=== PATIENT | male | born 1980 | race African-American/Black ===

== ENCOUNTER 2025-10-03 16:51 | Inpatient (IN) | payer BC, MEDICARE ==
[~2025-10-03] VITALS: Ht 188 cm; Wt 104.5 kg
[2025-10-03 17:37] LABS: BASO # 0.0 10^3/uL (0.0-0.2); BASO % 0.5 % (0.0-1.0); EOS # 0.2 10^3/uL (0.0-0.5); EOS % 2.2 % (0.0-3.0); LYMPH # 1.3 10^3/uL (1.5-5.0); LYMPH % 17.3 % (24.0-44.0); MONO # 0.8 10^3/uL (0.0-0.8); MONO % 10.0 % (2.0-8.0); NEUTROPHILS # 5.3 10^3/uL (1.5-8.5); NEUTROPHILS % 69.7 % (36.0-66.0); PLATELET COUNT, AUTOMATED 256 10^3/uL (150-450)
[2025-10-03 18:07] LABS: ALT/SGPT 26.0 U/L (7.0-40); AST/SGOT 25.0 U/L (<34); CALCIUM LEVEL 9.8 MG/DL (8.5-10.1); CARBON DIOXIDE LEVEL 30.0 MMOL/L (20-31); CHLORIDE LEVEL 92.0 MMOL/L (98-107); CREATININE FOR GFR 10.66 MG/DL (0.70-1.30); GLOMERULAR FILTRATION RATE 5.5 (>60); POTASSIUM SERUM 6.0 MMOL/L (3.5-5.1); SODIUM LEVEL 138.0 MMOL/L (136-145)
[2025-10-03] MEDS: NS (Normal Saline) 0.9% 1,000 ML IV ONE (18:29)
[2025-10-03] MEDS: ONDANSETRON 4MG/2ML VIAL IV ONE (18:30)
[2025-10-03 18:52] LABS: CK-MB VALUE MASS 7.1 NG/ML (<3.6)
[2025-10-03 18:55] LABS: CPK CREATINE PHOSPHOKINASE 280.0 U/L (46-171); MB/CK RELATIVE INDEX 2.53 (< OR =4)
[2025-10-03] MEDS ORDERED: HYDR-4517 PO (19:09)
[2025-10-03] MEDS ORDERED: NIFE90TA46 PO (19:09)
[2025-10-03] MEDS ORDERED: GABA-1171 PO (19:09)
[2025-10-03] MEDS ORDERED: ROSU40TA81 PO (19:09)
[2025-10-03] MEDS ORDERED: HUMU70IN INJ (19:09)
[2025-10-03] MEDS ORDERED: CONS10SO3 PO (19:09)
[2025-10-03] MEDS ORDERED: CLON-412 PO (19:09)
[2025-10-03] MEDS ORDERED: TRAZ1TAB14 PO (19:09)
[2025-10-03] MEDS ORDERED: LABE20TAB PO (19:09)
[2025-10-03] MEDS ORDERED: DIALTAB PO (19:09)
[2025-10-03] MEDS ORDERED: CLON1TAB8 PO (19:09)
[2025-10-03] MEDS ORDERED: CLOP75TA2 PO (19:09)
[2025-10-03] MEDS ORDERED: INSU100V19 INJ (19:09)
[2025-10-03] MEDS ORDERED: LINZ290C PO (19:09)
[2025-10-03] MEDS ORDERED: HOME MED LIST COMPLETE! XX SCH (19:10)
[2025-10-03 19:47] LABS: MAGNESIUM LEVEL 2.3 MG/DL (1.8-2.4)
[2025-10-03] MEDS: ACETAMINOPHEN *IV* 1,000 MG in IV 1 EA IV ONE (21:05)
[2025-10-03] MEDS ORDERED: DEXTROSE 50% 50 ML SYRINGE IV PRN (22:50)
[2025-10-03] MEDS ORDERED: VANCOMYCIN HCL 1,000 MG, VIAL MATE ADAPTER 1 EACH in NS 250 ML IP ONE (22:50)
[2025-10-03] MEDS ORDERED: GLUCAGON INJ 1 MG VIAL SC PRN (22:50)
[2025-10-03] MEDS ORDERED: GLUCOSE 4 GM CHEW PO PRN (22:50)
[2025-10-03] MEDS: HYDROMORPHONE HCL 0.5 MG/0.5 ML SYRINGE IV PRN (23:24)
[2025-10-03] MEDS: VANCOMYCIN HCL 2,000 MG, VIAL MATE ADAPTER 1 EACH in NS 500 ML IV ONE (23:50)
[2025-10-03] MEDS: METOPROLOL 5 MG/5 ML VIAL IV SCH (23:50)
[2025-10-04] VITALS (7 sets, daily range): BP systolic 166–200; BP diastolic 79–87; TEMP 96.7–98.2; O2SAT 97–100
[2025-10-04] MEDS: cloNIDine HCL 0.2 MG/24 HR PATCH TOP SCH (00:14)
[2025-10-04 00:27] LABS: CALCIUM LEVEL 8.6 MG/DL (8.5-10.1); CARBON DIOXIDE LEVEL 29.0 MMOL/L (20-31); CHLORIDE LEVEL 93.0 MMOL/L (98-107); CREATININE FOR GFR 11.07 MG/DL (0.70-1.30); GLOMERULAR FILTRATION RATE 5.3 (>60); POTASSIUM SERUM 6.0 MMOL/L (3.5-5.1); SODIUM LEVEL 136.0 MMOL/L (136-145)
[2025-10-04] MEDS: PIPERACILLIN/TAZOBACTAM SOD 2.25 GM in DEXTROSE 5% (D5W) ADV/MINI-BAG 50 ML IV SCH (02:54)
[2025-10-04] MEDS ORDERED: LIDOCAINE 1% SDV 5 ML VIAL SC PRN (06:50)
[2025-10-04] MEDS ORDERED: HEPARIN 1,000 UNITS/ML 10 ML VIAL (FOR RADIOLOGY & DIALYSIS ONLY) IV PRN (06:50)
[2025-10-04] MEDS ORDERED: SODIUM CHLORIDE 0.9% 1000 ML IV PRN (06:50)
[2025-10-04 07:37] LABS: PLATELET COUNT, AUTOMATED 222 10^3/uL (150-450)
[2025-10-04 07:44] LABS: HEPATITIS B SURFACE ANTIBODY POSITIVE (POSITIVE)
[2025-10-04 08:17] LABS: HEPATITIS C VIRUS ABY INDEX < 0.02 INDEX (<0.8)
[2025-10-04 09:05] LABS: ALT/SGPT 23 U/L (7.0-40); AST/SGOT 26 U/L (<34); CALCIUM LEVEL 8.7 MG/DL (8.5-10.1); CARBON DIOXIDE LEVEL 28 MMOL/L (20-31); CHLORIDE LEVEL 96 MMOL/L (98-107); CREATININE FOR GFR 11.57 MG/DL (0.70-1.30); GLOMERULAR FILTRATION RATE 5.0 (>60); MAGNESIUM LEVEL 2.0 MG/DL (1.8-2.4); POTASSIUM SERUM 5.9 MMOL/L (3.5-5.1); SODIUM LEVEL 138 MMOL/L (136-145)
[2025-10-04] MEDS: INSULIN LISPRO (NovoLOG) PER UNIT SC SCH (09:07)
[2025-10-04] MEDS ORDERED: HYDROmorphone HCL 2 MG/ML 1 ML VIAL IV PRN (09:20)
[2025-10-04] MEDS: HEPARIN 1,000 UNITS/ML 10 ML VIAL (FOR RADIOLOGY & DIALYSIS ONLY) XX SCH (10:05)
[2025-10-04] MEDS: ACETAMINOPHEN *IV* 1,000 MG in IV 1 EA IV ONE (10:27)
[2025-10-04 10:49] LABS: C REACTIVE PROTEIN QUANTITATIV 1.14 MG/DL (<1.0)
[2025-10-04] MEDS: HYDROMORPHONE HCL 0.5 MG/0.5 ML SYRINGE IV PRN (14:48)
[2025-10-04] MEDS: clonazePAM 1 MG TAB PO SCH (20:27)
[2025-10-04] MEDS: ROSUVASTATIN 10 MG TAB PO SCH (20:28)
[2025-10-04] MEDS: LABETALOL 200 MG TAB PO SCH (20:28)
[2025-10-04] MEDS: traZODone 50 MG TAB PO SCH (20:28)
[2025-10-04] MEDS: NIFEdipine 30 MG XL TAB PO SCH (20:29)
[2025-10-04] MEDS: HEPARIN SOD 5000 UNITS/ML 1 ML VIAL/SYRINGE SQ SCH (20:29)
[2025-10-04] MEDS: GABAPENTIN 100 MG CAP PO SCH (20:29)
[2025-10-04] MEDS ORDERED: CLOPIDOGREL 75 MG TAB PO SCH (21:00)
[2025-10-05 04:39] VITALS: BP 124/63; TEMP 98.4; O2SAT 98
[2025-10-05 05:50] LABS: BASO # 0.0 10^3/uL (0.0-0.2); BASO % 0.6 % (0.0-1.0); EOS # 0.1 10^3/uL (0.0-0.5); EOS % 2.9 % (0.0-3.0); LYMPH # 0.5 10^3/uL (1.5-5.0); LYMPH % 10.9 % (24.0-44.0); MONO # 0.6 10^3/uL (0.0-0.8); MONO % 12.4 % (2.0-8.0); NEUTROPHILS # 3.5 10^3/uL (1.5-8.5); NEUTROPHILS % 73.0 % (36.0-66.0); PLATELET COUNT, AUTOMATED 197 10^3/uL (150-450)
[2025-10-05 06:05] LABS: C REACTIVE PROTEIN QUANTITATIV 2.92 MG/DL (<1.0)
[2025-10-05 06:13] LABS: ALT/SGPT 40.0 U/L (7.0-40); AST/SGOT 39.0 U/L (<34); CALCIUM LEVEL 8.6 MG/DL (8.5-10.1); CARBON DIOXIDE LEVEL 27.0 MMOL/L (20-31); CHLORIDE LEVEL 98.0 MMOL/L (98-107); CREATININE FOR GFR 8.93 MG/DL (0.70-1.30); GLOMERULAR FILTRATION RATE 6.8 (>60); MAGNESIUM LEVEL 2.0 MG/DL (1.8-2.4); POTASSIUM SERUM 5.6 MMOL/L (3.5-5.1); SODIUM LEVEL 137.0 MMOL/L (136-145)
[2025-10-05 08:00] VITALS: BP 148/72; TEMP 98.3; O2SAT 100
[2025-10-05] MEDS ORDERED: MAGNESIUM CITRATE 300 ML BTL PO ONE (10:00)
[2025-10-05] MEDS ORDERED: HEPARIN 1,000 UNITS/ML 10 ML VIAL (FOR RADIOLOGY & DIALYSIS ONLY) IV PRN (10:05)
[2025-10-05] MEDS ORDERED: LIDOCAINE 1% SDV 5 ML VIAL SC PRN (10:05)
[2025-10-05] MEDS ORDERED: SODIUM CHLORIDE 0.9% 1000 ML IV PRN (10:05)
[2025-10-05] MEDS: MIRALAX *UNIT DOSE* 17 GM PACKET PO SCH (10:23)
[2025-10-05] MEDS: LIDOCAINE/PRILOCAINE CREAM 5 GM TUBE TOP PRN (10:31)
[2025-10-05] MEDS: HEPARIN 1,000 UNITS/ML 10 ML VIAL (FOR RADIOLOGY & DIALYSIS ONLY) XX SCH (12:50)
[2025-10-05] MEDS: LACTULOSE 20 GM/30 ML SYRUP UDC PO SCH (15:06)
[2025-10-05 16:00] VITALS: BP 142/73; TEMP 99; O2SAT 99
[2025-10-05 20:00] VITALS: BP 134/60; TEMP 98.7; O2SAT 97
[2025-10-06] VITALS (7 sets, daily range): BP systolic 112–180; BP diastolic 56–83; TEMP 97.2–98.5; O2SAT 94–100
[2025-10-06 07:42] LABS: BASO # 0.0 10^3/uL (0.0-0.2); BASO % 0.7 % (0.0-1.0); EOS # 0.2 10^3/uL (0.0-0.5); EOS % 4.2 % (0.0-3.0); LYMPH # 0.9 10^3/uL (1.5-5.0); LYMPH % 23.0 % (24.0-44.0); MONO # 0.7 10^3/uL (0.0-0.8); MONO % 16.6 % (2.0-8.0); NEUTROPHILS # 2.2 10^3/uL (1.5-8.5); NEUTROPHILS % 55.3 % (36.0-66.0); PLATELET COUNT, AUTOMATED 204 10^3/uL (150-450)
[2025-10-06 08:31] LABS: CALCIUM LEVEL 8.5 MG/DL (8.5-10.1); CARBON DIOXIDE LEVEL 30.0 MMOL/L (20-31); CHLORIDE LEVEL 96.0 MMOL/L (98-107); CREATININE FOR GFR 8.08 MG/DL (0.70-1.30); GLOMERULAR FILTRATION RATE 7.7 (>60); MAGNESIUM LEVEL 1.9 MG/DL (1.8-2.4); POTASSIUM SERUM 5.2 MMOL/L (3.5-5.1); SODIUM LEVEL 136.0 MMOL/L (136-145)
[2025-10-06] MEDS ORDERED: FLEET ENEMA PR PRN (08:55)
[2025-10-06] MEDS: LACTULOSE 20 GM/30 ML SYRUP UDC PO SCH (10:08)
[2025-10-06] MEDS: FLEET OIL RETENTION ENEMA PR PRN (12:36)
[2025-10-06] MEDS: HYDROMORPHONE HCL 0.5 MG/0.5 ML SYRINGE IV PRN ×2 (17:40→21:37)
[2025-10-06] MEDS: SIMETHICONE 80MG CHEW TAB PO PRN (19:07)
[2025-10-07] VITALS (7 sets, daily range): BP systolic 138–192; BP diastolic 62–92; TEMP 98.5–98.9; O2SAT 93–98
[2025-10-07] MEDS ORDERED: HEPARIN 1,000 UNITS/ML 10 ML VIAL (FOR RADIOLOGY & DIALYSIS ONLY) IV PRN (06:00)
[2025-10-07] MEDS ORDERED: SODIUM CHLORIDE 0.9% 1000 ML IV PRN (06:00)
[2025-10-07] MEDS ORDERED: LIDOCAINE 1% SDV 5 ML VIAL SC PRN (06:00)
[2025-10-07] MEDS: HEPARIN 1,000 UNITS/ML 10 ML VIAL (FOR RADIOLOGY & DIALYSIS ONLY) XX SCH (10:42)
[2025-10-07 11:04] LABS: PLATELET COUNT, AUTOMATED 208 10^3/uL (150-450)
[2025-10-07 11:18] LABS: CALCIUM LEVEL 8.2 MG/DL (8.5-10.1); CARBON DIOXIDE LEVEL 26.0 MMOL/L (20-31); CHLORIDE LEVEL 96.0 MMOL/L (98-107); CREATININE FOR GFR 10.39 MG/DL (0.70-1.30); GLOMERULAR FILTRATION RATE 5.7 (>60); POTASSIUM SERUM 5.2 MMOL/L (3.5-5.1); SODIUM LEVEL 137.0 MMOL/L (136-145)
[2025-10-07] MEDS ORDERED: PILL CUTTER 1 EACH XX PRN (21:50)
[2025-10-07] MEDS: HYDROmorphone 2 MG TAB PO PRN (22:03)
[2025-10-08] VITALS: TEMP 98.6; O2SAT 100
[2025-10-08 05:56] VITALS: BP 156/70; TEMP 98.7; O2SAT 96
[2025-10-08 08:00] VITALS: BP 132/65; TEMP 98.8; O2SAT 97
[2025-10-08 12:43] VITALS: BP 142/71; TEMP 98.3; O2SAT 97
== END 2025-10-08 12:35 | disposition home or self-care (01) | DRG 356 ==
LOC: M ED 16:51 → M ED INP 22:43 → M ICU 10-04 09:09 → M MSPAV 10-06 11:40
PROVIDERS: ADMIT Internal Medicine; ATTEND Internal Medicine
PROC: 5A1D70Z Performance of Urinary Filtration, Intermittent, Less than 6 Hours Per Day (ICD-10-PCS; 2025-10-04)
PROC: 0JBR0ZZ Excision of Left Foot Subcutaneous Tissue and Fascia, Open Approach (ICD-10-PCS; principal; 2025-10-07)
DX: K56.51 Intestinal adhesions [bands], with partial obstruction (principal); N18.6 End stage renal disease; I12.0 Hypertensive chronic kidney disease with stage 5 chronic kidney disease or end stage renal disease; L97.528 Non-pressure chronic ulcer of other part of left foot with other specified severity; E11.22 Type 2 diabetes mellitus with diabetic chronic kidney disease; E11.51 Type 2 diabetes mellitus with diabetic peripheral angiopathy without gangrene; I25.10 Atherosclerotic heart disease of native coronary artery without angina pectoris; K59.09 Other constipation; E87.5 Hyperkalemia; D64.9 Anemia, unspecified; E11.621 Type 2 diabetes mellitus with foot ulcer; G89.29 Other chronic pain; E11.42 Type 2 diabetes mellitus with diabetic polyneuropathy; Z95.820 Peripheral vascular angioplasty status with implants and grafts; Z95.5 Presence of coronary angioplasty implant and graft; Z89.422 Acquired absence of other left toe(s); Z79.4 Long term (current) use of insulin; Z79.02 Long term (current) use of antithrombotics/antiplatelets; Z79.899 Other long term (current) drug therapy; Z88.1 Allergy status to other antibiotic agents; Z88.5 Allergy status to narcotic agent; Z96.652 Presence of left artificial knee joint; Z99.2 Dependence on renal dialysis

== ENCOUNTER 2025-10-09 19:27 | Inpatient (IN) | payer MEDICARE ==
[~2025-10-09] VITALS: Ht 190.5 cm; Wt 105.8 kg
[~2025-10-09 19:27] MED LIST: CLON-412 PO; CLON1TAB8 PO; CLOP75TA2 PO; CONS10SO3 PO; DIALTAB PO; GABA-1171 PO; HUMU70IN INJ; HYDR-4517 PO; INSURSDRX INJ; LABE20TAB PO; LINZ290C PO; NIFE90TA46 PO; ROSU40TA81 PO; TRAZ1TAB14 PO
[2025-10-09 20:18] LABS: BASO # 0.1 10^3/uL (0.0-0.2); BASO % 0.4 % (0.0-1.0); EOS # 0.3 10^3/uL (0.0-0.5); EOS % 1.8 % (0.0-3.0); LYMPH # 1.4 10^3/uL (1.5-5.0); LYMPH % 9.8 % (24.0-44.0); MONO # 0.9 10^3/uL (0.0-0.8); MONO % 6.3 % (2.0-8.0); NEUTROPHILS # 11.9 10^3/uL (1.5-8.5); NEUTROPHILS % 81.4 % (36.0-66.0); PLATELET COUNT, AUTOMATED 279 10^3/uL (150-450)
[2025-10-09] MEDS: ACETAMINOPHEN *IV* 1,000 MG in IV 1 EA IV ONE (20:46)
[2025-10-09] MEDS: KETOROLAC 30 MG/ML 1 ML VIAL IV ONE (20:46)
[2025-10-09 20:47] LABS: ALT/SGPT 36.0 U/L (7.0-40); AST/SGOT 42.0 U/L (<34); CALCIUM LEVEL 10.2 MG/DL (8.5-10.1); CARBON DIOXIDE LEVEL 29.0 MMOL/L (20-31); CHLORIDE LEVEL 92.0 MMOL/L (98-107); CREATININE FOR GFR 8.31 MG/DL (0.70-1.30); GLOMERULAR FILTRATION RATE 7.5 (>60); POTASSIUM SERUM 6.0 MMOL/L (3.5-5.1); SODIUM LEVEL 136.0 MMOL/L (136-145)
[2025-10-09] MEDS: ONDANSETRON 4MG/2ML VIAL IV ONE (20:52)
[2025-10-09] MEDS ORDERED: HYDROMORPHONE HCL 0.5 MG/0.5 ML SYRINGE IV PRN (21:50)
[2025-10-09] MEDS: SODIUM BICARBONATE 8.4% INJ 50ML SYRINGE IV ONE (22:12)
[2025-10-09] MEDS: PATIROMER SORBITEX CALCIUM 8.4GM POWDER PACKET PO ONE (22:12)
[2025-10-09] MEDS: HumuLIN R (REGULAR) INSULIN (NovoLIN R) **100 U/ML** PER UNIT IV ONE (22:12)
[2025-10-09] MEDS: CALCIUM GLUCONATE 1,000 MG/10 ML VIAL IV ONE (22:12)
[2025-10-09] MEDS: DEXTROSE 50% 50 ML SYRINGE IV ONE (22:12)
[2025-10-09] MEDS: HYDROMORPHONE HCL 0.5 MG/0.5 ML SYRINGE IV PRN (22:13)
[2025-10-09] MEDS: GASTROGRAFIN SOLUTION 30ML PO SCH (22:31)
[2025-10-10] MEDS ORDERED: ISOVUE-370 76% 100 ML VIAL As Ordered ONE (00:05)
[2025-10-10] MEDS ORDERED: DEXTROSE 50% 50 ML SYRINGE IV PRN (03:05)
[2025-10-10] MEDS ORDERED: GLUCOSE 4 GM CHEW PO PRN (03:05)
[2025-10-10] MEDS ORDERED: ONDANSETRON 4MG/2ML VIAL IV PRN (03:05)
[2025-10-10] MEDS ORDERED: GLUCAGON INJ 1 MG VIAL SC PRN (03:05)
[2025-10-10 03:20] LABS: C REACTIVE PROTEIN QUANTITATIV 1.31 MG/DL (<1.0)
[2025-10-10 03:21] LABS: CALCIUM LEVEL 9.0 MG/DL (8.5-10.1); CARBON DIOXIDE LEVEL 30.0 MMOL/L (20-31); CHLORIDE LEVEL 93.0 MMOL/L (98-107); CREATININE FOR GFR 8.72 MG/DL (0.70-1.30); GLOMERULAR FILTRATION RATE 7.0 (>60); POTASSIUM SERUM 5.5 MMOL/L (3.5-5.1); SODIUM LEVEL 137.0 MMOL/L (136-145)
[2025-10-10] MEDS: PIPERACILLIN/TAZOBACTAM SOD 4.5 GM in DEXTROSE 5% (D5W) ADV/MINI-BAG 50 ML IV ONE (03:24)
[2025-10-10 04:14] VITALS: BP 165/79; TEMP 97.9; O2SAT 93
[2025-10-10 04:15] VITALS: BP 126/73; TEMP 97.9; O2SAT 93
[2025-10-10] MEDS: HYDROMORPHONE HCL 0.5 MG/0.5 ML SYRINGE IV PRN ×2 (04:21→09:51)
[2025-10-10 05:14] VITALS: O2SAT 94
[2025-10-10] MEDS: NS (Normal Saline) 0.9% 1,000 ML IV SCH (05:54)
[2025-10-10] MEDS ORDERED: INSULIN LISPRO (NovoLOG) PER UNIT SC SCH (05:55)
[2025-10-10] MEDS: INSULIN LISPRO (NovoLOG) PER UNIT SC SCH (06:00)
[2025-10-10 06:31] LABS: BASO # 0.0 10^3/uL (0.0-0.2); BASO % 0.5 % (0.0-1.0); EOS # 0.2 10^3/uL (0.0-0.5); EOS % 3.5 % (0.0-3.0); LYMPH # 1.4 10^3/uL (1.5-5.0); LYMPH % 21.0 % (24.0-44.0); MONO # 0.7 10^3/uL (0.0-0.8); MONO % 10.0 % (2.0-8.0); NEUTROPHILS # 4.3 10^3/uL (1.5-8.5); NEUTROPHILS % 64.7 % (36.0-66.0); PLATELET COUNT, AUTOMATED 200 10^3/uL (150-450)
[2025-10-10] MEDS: PANTOPRAZOLE 40MG VIAL IV SCH (06:54)
[2025-10-10 06:57] LABS: C REACTIVE PROTEIN QUANTITATIV 1.7 MG/DL (<1.0)
[2025-10-10 07:01] LABS: ALT/SGPT 27.0 U/L (7.0-40); AST/SGOT 18.0 U/L (<34); CALCIUM LEVEL 8.9 MG/DL (8.5-10.1); CARBON DIOXIDE LEVEL 32.0 MMOL/L (20-31); CHLORIDE LEVEL 91.0 MMOL/L (98-107); CREATININE FOR GFR 9.02 MG/DL (0.70-1.30); GLOMERULAR FILTRATION RATE 6.8 (>60); MAGNESIUM LEVEL 2.2 MG/DL (1.8-2.4); POTASSIUM SERUM 5.0 MMOL/L (3.5-5.1); SODIUM LEVEL 136.0 MMOL/L (136-145)
[2025-10-10] MEDS: FLEET ENEMA PR SCH (09:49)
[2025-10-10] MEDS: HEPARIN SOD 5000 UNITS/ML 1 ML VIAL/SYRINGE SQ SCH (09:49)
[2025-10-10] MEDS ORDERED: HOME MED LIST COMPLETE! XX SCH (10:10)
[2025-10-10] MEDS ORDERED: LACTULOSE 20 GM/30 ML SYRUP UDC PO PRN (11:50)
[2025-10-10 12:00] VITALS: BP 205/94; TEMP 97.2; O2SAT 100
[2025-10-10 12:30] VITALS: BP 128/73
[2025-10-10] MEDS ORDERED: HEPARIN SOD 5000 UNITS/ML 1 ML VIAL/SYRINGE SQ SCH (14:00)
[2025-10-10 20:01] VITALS: BP 199/94; TEMP 97.6; O2SAT 96
[2025-10-10] MEDS: clonazePAM 1 MG TAB PO SCH (20:29)
[2025-10-10] MEDS: ROSUVASTATIN 10 MG TAB PO SCH (20:29)
[2025-10-10] MEDS: traZODone 50 MG TAB PO SCH (20:30)
[2025-10-10] MEDS: LABETALOL 200 MG TAB PO SCH (20:31)
[2025-10-10] MEDS: NIFEdipine 30 MG XL TAB PO SCH (20:32)
[2025-10-10] MEDS: GABAPENTIN 100 MG CAP PO SCH (20:33)
[2025-10-11 03:28] VITALS: BP 134/63; TEMP 98.4; O2SAT 89
[2025-10-11] MEDS ORDERED: LIDOCAINE 1% SDV 5 ML VIAL SC PRN (06:00)
[2025-10-11] MEDS ORDERED: HEPARIN 1,000 UNITS/ML 10 ML VIAL (FOR RADIOLOGY & DIALYSIS ONLY) IV PRN (06:00)
[2025-10-11] MEDS ORDERED: SODIUM CHLORIDE 0.9% 1000 ML IV PRN (06:00)
[2025-10-11 06:03] LABS: BASO # 0.0 10^3/uL (0.0-0.2); BASO % 0.7 % (0.0-1.0); EOS # 0.2 10^3/uL (0.0-0.5); EOS % 4.4 % (0.0-3.0); LYMPH # 1.5 10^3/uL (1.5-5.0); LYMPH % 32.2 % (24.0-44.0); MONO # 0.5 10^3/uL (0.0-0.8); MONO % 10.8 % (2.0-8.0); NEUTROPHILS # 2.3 10^3/uL (1.5-8.5); NEUTROPHILS % 51.7 % (36.0-66.0); PLATELET COUNT, AUTOMATED 177 10^3/uL (150-450)
[2025-10-11 06:41] LABS: CALCIUM LEVEL 8.2 MG/DL (8.5-10.1); CARBON DIOXIDE LEVEL 28.0 MMOL/L (20-31); CHLORIDE LEVEL 95.0 MMOL/L (98-107); CREATININE FOR GFR 10.8 MG/DL (0.70-1.30); GLOMERULAR FILTRATION RATE 5.4 (>60); POTASSIUM SERUM 5.1 MMOL/L (3.5-5.1); SODIUM LEVEL 136.0 MMOL/L (136-145)
[2025-10-11 07:53] VITALS: BP_SYST 116; BP_SYST 16; BP_DIAS 72
[2025-10-11] MEDS: ASPIRIN 81 MG CHEWABLE TABLET PO SCH (08:01)
[2025-10-11] MEDS: HEPARIN 1,000 UNITS/ML 10 ML VIAL (FOR RADIOLOGY & DIALYSIS ONLY) XX SCH (09:20)
[2025-10-11 13:15] VITALS: BP 123/57; TEMP 97.9; O2SAT 67
[2025-10-11] MEDS: FAT EMULSION IV 250 ML IV ONE (17:56)
[2025-10-11] MEDS: AMINO AC/ELECTROLYTE/DEX/CALC 1,000 ML IV SCH (17:56)
[2025-10-11 20:09] VITALS: BP 166/76; TEMP 99.3; O2SAT 94
[2025-10-12 00:05] VITALS: TEMP 98.5
[2025-10-12 04:28] VITALS: BP 150/71; TEMP 98.5; O2SAT 97
[2025-10-12 05:46] LABS: BASO # 0.0 10^3/uL (0.0-0.2); BASO % 0.5 % (0.0-1.0); EOS # 0.2 10^3/uL (0.0-0.5); EOS % 3.5 % (0.0-3.0); LYMPH # 1.6 10^3/uL (1.5-5.0); LYMPH % 29.7 % (24.0-44.0); MONO # 0.5 10^3/uL (0.0-0.8); MONO % 9.7 % (2.0-8.0); NEUTROPHILS # 3.1 10^3/uL (1.5-8.5); NEUTROPHILS % 56.4 % (36.0-66.0); PLATELET COUNT, AUTOMATED 216 10^3/uL (150-450)
[2025-10-12 06:22] LABS: CALCIUM LEVEL 8.7 MG/DL (8.5-10.1); CARBON DIOXIDE LEVEL 28.0 MMOL/L (20-31); CHLORIDE LEVEL 95.0 MMOL/L (98-107); CREATININE FOR GFR 8.19 MG/DL (0.70-1.30); GLOMERULAR FILTRATION RATE 7.6 (>60); POTASSIUM SERUM 4.5 MMOL/L (3.5-5.1); SODIUM LEVEL 137.0 MMOL/L (136-145)
[2025-10-12 11:42] VITALS: BP 130/63; TEMP 98.4; O2SAT 100
[2025-10-12 12:23] LABS: MAGNESIUM LEVEL 2.1 MG/DL (1.8-2.4)
[2025-10-12] MEDS: DOCUSATE SODIUM 100 MG CAPSULE PO SCH (12:41)
[2025-10-12] MEDS: SENNA 8.6 MG TAB PO SCH (12:41)
[2025-10-12] MEDS: INSULIN LISPRO (NovoLOG) PER UNIT SC SCH (18:00)
[2025-10-12] MEDS: FAT EMULSION IV 250 ML IV ONE (18:14)
[2025-10-12 19:58] VITALS: BP 142/75; TEMP 98.4; O2SAT 100
[2025-10-12 22:12] VITALS: BP 154/68
[2025-10-13 03:16] VITALS: BP 128/68; TEMP 98.7; O2SAT 97
[2025-10-13 06:06] LABS: BASO # 0.0 10^3/uL (0.0-0.2); BASO % 0.4 % (0.0-1.0); EOS # 0.2 10^3/uL (0.0-0.5); EOS % 3.1 % (0.0-3.0); LYMPH # 1.5 10^3/uL (1.5-5.0); LYMPH % 29.6 % (24.0-44.0); MONO # 0.6 10^3/uL (0.0-0.8); MONO % 10.6 % (2.0-8.0); NEUTROPHILS # 2.9 10^3/uL (1.5-8.5); NEUTROPHILS % 56.1 % (36.0-66.0); PLATELET COUNT, AUTOMATED 178 10^3/uL (150-450)
[2025-10-13 06:35] LABS: CALCIUM LEVEL 8.2 MG/DL (8.5-10.1); CARBON DIOXIDE LEVEL 26.0 MMOL/L (20-31); CHLORIDE LEVEL 98.0 MMOL/L (98-107); CREATININE FOR GFR 10.34 MG/DL (0.70-1.30); GLOMERULAR FILTRATION RATE 5.7 (>60); POTASSIUM SERUM 4.9 MMOL/L (3.5-5.1); SODIUM LEVEL 137.0 MMOL/L (136-145)
[2025-10-13 12:05] LABS: C REACTIVE PROTEIN QUANTITATIV 1.53 MG/DL (<1.0)
[2025-10-13 12:06] VITALS: BP 123/62; TEMP 98.9; O2SAT 95
[2025-10-13] MEDS: FAT EMULSION IV 250 ML IV ONE (17:47)
[2025-10-13] MEDS ORDERED: INSULIN LISPRO (NovoLOG) PER UNIT SC SCH (18:00)
[2025-10-13 20:05] VITALS: BP 152/70; TEMP 98.8; O2SAT 95
[2025-10-14 03:50] VITALS: BP 176/82; TEMP 98.7; O2SAT 98
[2025-10-14] MEDS ORDERED: SODIUM CHLORIDE 0.9% 1000 ML IV PRN (06:00)
[2025-10-14] MEDS ORDERED: HEPARIN 1,000 UNITS/ML 10 ML VIAL (FOR RADIOLOGY & DIALYSIS ONLY) IV PRN (06:00)
[2025-10-14 06:34] LABS: BASO # 0.0 10^3/uL (0.0-0.2); BASO % 0.8 % (0.0-1.0); EOS # 0.2 10^3/uL (0.0-0.5); EOS % 3.9 % (0.0-3.0); LYMPH # 1.4 10^3/uL (1.5-5.0); LYMPH % 25.4 % (24.0-44.0); MONO # 0.6 10^3/uL (0.0-0.8); MONO % 11.3 % (2.0-8.0); NEUTROPHILS # 3.1 10^3/uL (1.5-8.5); NEUTROPHILS % 58.4 % (36.0-66.0); PLATELET COUNT, AUTOMATED 179 10^3/uL (150-450)
[2025-10-14 07:03] LABS: C REACTIVE PROTEIN QUANTITATIV 1.18 MG/DL (<1.0)
[2025-10-14 07:14] LABS: CALCIUM LEVEL 8.2 MG/DL (8.5-10.1); CARBON DIOXIDE LEVEL 26.0 MMOL/L (20-31); CHLORIDE LEVEL 98.0 MMOL/L (98-107); CREATININE FOR GFR 12.3 MG/DL (0.70-1.30); GLOMERULAR FILTRATION RATE 4.7 (>60); MAGNESIUM LEVEL 2.2 MG/DL (1.8-2.4); POTASSIUM SERUM 5.5 MMOL/L (3.5-5.1); SODIUM LEVEL 137.0 MMOL/L (136-145)
[2025-10-14 08:59] VITALS: BP 175/77
[2025-10-14] MEDS: LACTULOSE 20 GM/30 ML SYRUP UDC PO SCH (09:45)
[2025-10-14] MEDS ORDERED: PROHANCE 279.3MG/ML 5ML VIAL As Ordered ONE (12:00)
[2025-10-14] MEDS ORDERED: PROHANCE 279.3MG/ML 15ML VIAL As Ordered ONE (12:00)
[2025-10-14] MEDS: HEPARIN 1,000 UNITS/ML 10 ML VIAL (FOR RADIOLOGY & DIALYSIS ONLY) XX SCH (14:49)
[2025-10-14] MEDS: FAT EMULSION IV 250 ML IV ONE (18:07)
[2025-10-14 19:43] VITALS: BP 171/73; TEMP 98.9; O2SAT 97
[2025-10-15] VITALS (7 sets, daily range): BP systolic 160–191; BP diastolic 64–92; TEMP 97.6–98.7; O2SAT 94–100
[2025-10-15 06:37] LABS: BASO # 0.1 10^3/uL (0.0-0.2); BASO % 1.1 % (0.0-1.0); EOS # 0.2 10^3/uL (0.0-0.5); EOS % 4.2 % (0.0-3.0); LYMPH # 1.1 10^3/uL (1.5-5.0); LYMPH % 24.0 % (24.0-44.0); MONO # 0.6 10^3/uL (0.0-0.8); MONO % 11.6 % (2.0-8.0); NEUTROPHILS # 2.8 10^3/uL (1.5-8.5); NEUTROPHILS % 58.9 % (36.0-66.0); PLATELET COUNT, AUTOMATED 208 10^3/uL (150-450)
[2025-10-15 07:00] LABS: C REACTIVE PROTEIN QUANTITATIV 1.5 MG/DL (<1.0)
[2025-10-15 07:03] LABS: CALCIUM LEVEL 8.5 MG/DL (8.5-10.1); CARBON DIOXIDE LEVEL 26.0 MMOL/L (20-31); CHLORIDE LEVEL 101.0 MMOL/L (98-107); CREATININE FOR GFR 9.51 MG/DL (0.70-1.30); GLOMERULAR FILTRATION RATE 6.3 (>60); MAGNESIUM LEVEL 2.1 MG/DL (1.8-2.4); POTASSIUM SERUM 5.3 MMOL/L (3.5-5.1); SODIUM LEVEL 139.0 MMOL/L (136-145)
[2025-10-15] MEDS ORDERED: SUGAMMADEX SODIUM 500 MG/5 ML VIAL As Ordered ONE (07:11)
[2025-10-15] MEDS ORDERED: ONDANSETRON 4MG/2ML VIAL As Ordered ONE (07:11)
[2025-10-15] MEDS ORDERED: dexAMETHasone 4 MG/ML 1 ML VIAL As Ordered ONE (07:11)
[2025-10-15] MEDS ORDERED: KETOROLAC 30 MG/ML 1 ML VIAL As Ordered ONE (07:11)
[2025-10-15] MEDS ORDERED: LIDOCAINE 2% 100 MG/5 ML SDV (FOR ANES.) As Ordered ONE (07:11)
[2025-10-15] MEDS ORDERED: ROCURONIUM BROMIDE 50MG/5ML VIAL As Ordered ONE (07:11)
[2025-10-15] MEDS ORDERED: HEPARIN 1,000 UNITS/ML 10 ML VIAL (FOR RADIOLOGY & DIALYSIS ONLY) IV PRN (07:30)
[2025-10-15] MEDS ORDERED: SODIUM CHLORIDE 0.9% 1000 ML IV PRN (07:30)
[2025-10-15] MEDS ORDERED: HEPARIN 1,000 UNITS/ML 10 ML VIAL (FOR RADIOLOGY & DIALYSIS ONLY) XX SCH (07:30)
[2025-10-15] MEDS ORDERED: MIDAZOLAM INJ 2 MG/2 ML VIAL As Ordered ONE (08:20)
[2025-10-15] MEDS ORDERED: CALCIUM CHLORIDE 10% 1 GM/10 ML SYR As Ordered ONE (10:02)
[2025-10-15] MEDS ORDERED: ACETAMINOPHEN 1000MG/100ML IV BAG As Ordered ONE (10:12)
[2025-10-15] MEDS: LIDOCAINE 1% SDV 30 ML VIAL As Ordered ONE (10:17)
[2025-10-15] MEDS ORDERED: HYDROmorphone HCL 2 MG/ML 1 ML VIAL As Ordered ONE (11:06)
[2025-10-15] MEDS: METHYLENE BLUE 0.5% (5 MG/ML) 10 ML AMP As Ordered ONE (13:10)
[2025-10-15] MEDS ORDERED: ONDANSETRON 4MG/2ML VIAL IV PRN (14:30)
[2025-10-15] MEDS ORDERED: HYDROMORPHONE HCL 0.5 MG/0.5 ML SYRINGE IV PRN (14:30)
[2025-10-15] MEDS: FAT EMULSION IV 250 ML IV ONE (18:16)
[2025-10-15] MEDS: LR 1,000 ML IV SCH (19:33)
[2025-10-16 00:06] VITALS: BP 174/66; TEMP 98.7; O2SAT 100
[2025-10-16 04:49] VITALS: BP 172/58; TEMP 98.2; O2SAT 97
[2025-10-16 05:57] LABS: BASO # 0.0 10^3/uL (0.0-0.2); BASO % 0.5 % (0.0-1.0); EOS # 0.2 10^3/uL (0.0-0.5); EOS % 2.7 % (0.0-3.0); LYMPH # 0.7 10^3/uL (1.5-5.0); LYMPH % 10.4 % (24.0-44.0); MONO # 0.8 10^3/uL (0.0-0.8); MONO % 12.1 % (2.0-8.0); NEUTROPHILS # 4.9 10^3/uL (1.5-8.5); NEUTROPHILS % 74.0 % (36.0-66.0); PLATELET COUNT, AUTOMATED 206 10^3/uL (150-450)
[2025-10-16] MEDS ORDERED: SODIUM CHLORIDE 0.9% 1000 ML IV PRN (06:00)
[2025-10-16] MEDS ORDERED: HEPARIN 1,000 UNITS/ML 10 ML VIAL (FOR RADIOLOGY & DIALYSIS ONLY) IV PRN (06:00)
[2025-10-16 06:18] LABS: C REACTIVE PROTEIN QUANTITATIV 6.62 MG/DL (<1.0)
[2025-10-16 06:30] LABS: CALCIUM LEVEL 8.2 MG/DL (8.5-10.1); CARBON DIOXIDE LEVEL 23.0 MMOL/L (20-31); CHLORIDE LEVEL 101.0 MMOL/L (98-107); CREATININE FOR GFR 11.43 MG/DL (0.70-1.30); GLOMERULAR FILTRATION RATE 5.1 (>60); MAGNESIUM LEVEL 2.2 MG/DL (1.8-2.4); POTASSIUM SERUM 7.3 MMOL/L (3.5-5.1); SODIUM LEVEL 135.0 MMOL/L (136-145)
[2025-10-16] MEDS ORDERED: HumuLIN R (REGULAR) INSULIN (NovoLIN R) **100 U/ML** PER UNIT IV STA (07:13)
[2025-10-16] MEDS ORDERED: DEXTROSE 50% 50 ML SYRINGE IV STA (07:13)
[2025-10-16] MEDS: ALBUTEROL SULFATE 2.5 MG/0.5 ML INH CONCENTRATE NEB SOLN NEB ONE (07:30)
[2025-10-16] MEDS: CALCIUM GLUCONATE 1,000 MG in DEXTROSE 5% (D5W) MINI-BAG PLU 100 ML IV ONE (07:43)
[2025-10-16 07:50] VITALS: BP 148/76; TEMP 98; O2SAT 96
[2025-10-16] MEDS ORDERED: SOD POLYSTYRENE SULFONATE SUSP 15GM 60ML UD PO ONE (09:00)
[2025-10-16] MEDS: HEPARIN 1,000 UNITS/ML 10 ML VIAL (FOR RADIOLOGY & DIALYSIS ONLY) XX SCH (09:44)
[2025-10-16 13:00] VITALS: BP 144/62; TEMP 96.7; O2SAT 97
[2025-10-16 15:41] LABS: CALCIUM LEVEL 8.5 MG/DL (8.5-10.1); CARBON DIOXIDE LEVEL 24.0 MMOL/L (20-31); CHLORIDE LEVEL 100.0 MMOL/L (98-107); CREATININE FOR GFR 8.3 MG/DL (0.70-1.30); GLOMERULAR FILTRATION RATE 7.5 (>60); POTASSIUM SERUM 5.2 MMOL/L (3.5-5.1); SODIUM LEVEL 137.0 MMOL/L (136-145)
[2025-10-16 16:00] VITALS: BP 153/68; TEMP 98.6; O2SAT 96
[2025-10-16] MEDS: INSULIN LISPRO (NovoLOG) PER UNIT SC SCH (18:00)
[2025-10-16] MEDS: FAT EMULSION IV 250 ML IV ONE (18:13)
[2025-10-16 19:55] VITALS: BP 186/89; TEMP 98.1; O2SAT 99
[2025-10-17] MEDS ORDERED: HEPARIN 1,000 UNITS/ML 10 ML VIAL (FOR RADIOLOGY & DIALYSIS ONLY) IV PRN (06:00)
[2025-10-17] MEDS ORDERED: SODIUM CHLORIDE 0.9% 1000 ML IV PRN (06:00)
[2025-10-17] MEDS ORDERED: HEPARIN 1,000 UNITS/ML 10 ML VIAL (FOR RADIOLOGY & DIALYSIS ONLY) XX SCH (06:00)
[2025-10-17 06:15] VITALS: BP 140/63; TEMP 99.2; O2SAT 97
[2025-10-17 06:40] LABS: BASO # 0.0 10^3/uL (0.0-0.2); BASO % 0.4 % (0.0-1.0); EOS # 0.4 10^3/uL (0.0-0.5); EOS % 5.0 % (0.0-3.0); LYMPH # 1.1 10^3/uL (1.5-5.0); LYMPH % 16.4 % (24.0-44.0); MONO # 1.1 10^3/uL (0.0-0.8); MONO % 15.5 % (2.0-8.0); NEUTROPHILS # 4.3 10^3/uL (1.5-8.5); NEUTROPHILS % 62.4 % (36.0-66.0); PLATELET COUNT, AUTOMATED 170 10^3/uL (150-450)
[2025-10-17 07:09] LABS: C REACTIVE PROTEIN QUANTITATIV 20.99 MG/DL (<1.0); CALCIUM LEVEL 8.4 MG/DL (8.5-10.1); CARBON DIOXIDE LEVEL 24.0 MMOL/L (20-31); CHLORIDE LEVEL 99.0 MMOL/L (98-107); CREATININE FOR GFR 9.94 MG/DL (0.70-1.30); GLOMERULAR FILTRATION RATE 6.0 (>60); MAGNESIUM LEVEL 2.2 MG/DL (1.8-2.4); POTASSIUM SERUM 5.2 MMOL/L (3.5-5.1); SODIUM LEVEL 136.0 MMOL/L (136-145)
[2025-10-17] MEDS: ALVIMOPAN 12 MG CAPSULE PO SCH (08:41)
[2025-10-17 12:02] VITALS: BP 123/81; TEMP 98.4; O2SAT 94
[2025-10-17] MEDS: cloNIDine HCL 0.3 MG/24 HR PATCH TOP SCH (12:04)
[2025-10-17 20:04] VITALS: BP 127/61; TEMP 99.3; O2SAT 96
[2025-10-18] MEDS: CHLORASEPTIC SPRAY MT PRN (01:01)
[2025-10-18 05:01] VITALS: BP 134/60; TEMP 98.5; O2SAT 95
[2025-10-18] MEDS ORDERED: HEPARIN 1,000 UNITS/ML 10 ML VIAL (FOR RADIOLOGY & DIALYSIS ONLY) IV PRN (06:00)
[2025-10-18] MEDS ORDERED: SODIUM CHLORIDE 0.9% 1000 ML IV PRN (06:00)
[2025-10-18] MEDS ORDERED: LIDOCAINE 1% SDV 5 ML VIAL SC PRN (06:00)
[2025-10-18 06:56] LABS: BASO # 0.0 10^3/uL (0.0-0.2); BASO % 0.4 % (0.0-1.0); EOS # 0.5 10^3/uL (0.0-0.5); EOS % 6.7 % (0.0-3.0); LYMPH # 1.3 10^3/uL (1.5-5.0); LYMPH % 17.5 % (24.0-44.0); MONO # 0.8 10^3/uL (0.0-0.8); MONO % 11.0 % (2.0-8.0); NEUTROPHILS # 4.8 10^3/uL (1.5-8.5); NEUTROPHILS % 64.1 % (36.0-66.0); PLATELET COUNT, AUTOMATED 211 10^3/uL (150-450)
[2025-10-18 07:27] LABS: ALT/SGPT < 9 U/L (7.0-40); AST/SGOT 12 U/L (<34); CALCIUM LEVEL 9.0 MG/DL (8.5-10.1); CARBON DIOXIDE LEVEL 23 MMOL/L (20-31); CHLORIDE LEVEL 98 MMOL/L (98-107); CREATININE FOR GFR 12.21 MG/DL (0.70-1.30); GLOMERULAR FILTRATION RATE 4.7 (>60); MAGNESIUM LEVEL 2.4 MG/DL (1.8-2.4); POTASSIUM SERUM 5.2 MMOL/L (3.5-5.1); SODIUM LEVEL 136 MMOL/L (136-145)
[2025-10-18] MEDS: LIDOCAINE 4% CREAM 5 GM (LMX4) TOP PRN (07:49)
[2025-10-18 08:49] LABS: C REACTIVE PROTEIN QUANTITATIV 20.02 MG/DL (<1.0)
[2025-10-18] MEDS: HEPARIN 1,000 UNITS/ML 10 ML VIAL (FOR RADIOLOGY & DIALYSIS ONLY) XX SCH (09:47)
[2025-10-18] MEDS: DARBEPOETIN 100 MCG/0.5 ML *DIALYSIS* SYRINGE IV SCH (11:57)
[2025-10-18] MEDS ORDERED: SODIUM CHLORIDE 0.9% INJ 10 ML SYR IV PRN (13:50)
[2025-10-18] MEDS: BISACODYL 10 MG SUPP PR ONE (14:13)
[2025-10-18] MEDS: INSULIN LISPRO (NovoLOG) PER UNIT SC SCH (18:00)
[2025-10-18] MEDS: FAT EMULSION IV 250 ML IV ONE (18:09)
[2025-10-18] MEDS: SODIUM CHLORIDE 0.9% INJ 10 ML SYR IV SCH (18:10)
[2025-10-18 20:00] VITALS: BP 132/66; TEMP 98.7; O2SAT 94
[2025-10-19 04:27] VITALS: BP 142/67; TEMP 98.8; O2SAT 96
[2025-10-19 07:30] LABS: BASO # 0.0 10^3/uL (0.0-0.2); BASO % 0.3 % (0.0-1.0); EOS # 0.5 10^3/uL (0.0-0.5); EOS % 7.6 % (0.0-3.0); LYMPH # 1.0 10^3/uL (1.5-5.0); LYMPH % 14.4 % (24.0-44.0); MONO # 0.7 10^3/uL (0.0-0.8); MONO % 10.2 % (2.0-8.0); NEUTROPHILS # 4.7 10^3/uL (1.5-8.5); NEUTROPHILS % 67.2 % (36.0-66.0); PLATELET COUNT, AUTOMATED 219 10^3/uL (150-450)
[2025-10-19 08:10] LABS: ALT/SGPT < 9 U/L (7.0-40); AST/SGOT 18 U/L (<34); CALCIUM LEVEL 9.0 MG/DL (8.5-10.1); CARBON DIOXIDE LEVEL 26 MMOL/L (20-31); CHLORIDE LEVEL 97 MMOL/L (98-107); CREATININE FOR GFR 9.39 MG/DL (0.70-1.30); GLOMERULAR FILTRATION RATE 6.4 (>60); MAGNESIUM LEVEL 2.2 MG/DL (1.8-2.4); POTASSIUM SERUM 4.7 MMOL/L (3.5-5.1); SODIUM LEVEL 135 MMOL/L (136-145)
[2025-10-19 12:08] VITALS: BP_SYST 150; TEMP 98.6; O2SAT 96
[2025-10-19] MEDS: HEPARIN SOD 5000 UNITS/ML 1 ML VIAL/SYRINGE SQ SCH (12:50)
[2025-10-19 16:37] LABS: CHOLESTEROL LEVEL 97.0 MG/DL (<200); CHOLESTEROL RISK RATIO 3.74 (<5); LDL CHOLESTEROL 36.3 MG/DL (<100); NON-HDL-C 71.1 MG/DL; TRIGLYCERIDES LEVEL 174.0 MG/DL (<150)
[2025-10-19] MEDS: FAT EMULSION IV 250 ML IV ONE (17:59)
[2025-10-19 18:54] LABS: CALCIUM LEVEL 9.0 MG/DL (8.5-10.1); CARBON DIOXIDE LEVEL 24.0 MMOL/L (20-31); CHLORIDE LEVEL 99.0 MMOL/L (98-107); CREATININE FOR GFR 10.35 MG/DL (0.70-1.30); GLOMERULAR FILTRATION RATE 5.7 (>60); POTASSIUM SERUM 4.5 MMOL/L (3.5-5.1); SODIUM LEVEL 136.0 MMOL/L (136-145)
[2025-10-19 20:40] VITALS: TEMP 98.3; O2SAT 100
[2025-10-19] MEDS: CLOPIDOGREL 75 MG TAB PO SCH (20:53)
[2025-10-20 04:27] VITALS: BP 132/63; TEMP 98.4; O2SAT 95
[2025-10-20] MEDS ORDERED: HEPARIN 1,000 UNITS/ML 10 ML VIAL (FOR RADIOLOGY & DIALYSIS ONLY) IV PRN (06:00)
[2025-10-20 06:17] LABS: BASO # 0.0 10^3/uL (0.0-0.2); BASO % 0.5 % (0.0-1.0); EOS # 0.6 10^3/uL (0.0-0.5); EOS % 9.2 % (0.0-3.0); LYMPH # 1.3 10^3/uL (1.5-5.0); LYMPH % 19.8 % (24.0-44.0); MONO # 0.7 10^3/uL (0.0-0.8); MONO % 11.1 % (2.0-8.0); NEUTROPHILS # 3.9 10^3/uL (1.5-8.5); NEUTROPHILS % 59.2 % (36.0-66.0); PLATELET COUNT, AUTOMATED 224 10^3/uL (150-450)
[2025-10-20 07:52] LABS: ALT/SGPT < 9 U/L (7.0-40); AST/SGOT 13 U/L (<34); CALCIUM LEVEL 8.6 MG/DL (8.5-10.1); CARBON DIOXIDE LEVEL 25 MMOL/L (20-31); CHLORIDE LEVEL 99 MMOL/L (98-107); CREATININE FOR GFR 11.63 MG/DL (0.70-1.30); GLOMERULAR FILTRATION RATE 5.0 (>60); MAGNESIUM LEVEL 2.2 MG/DL (1.8-2.4); POTASSIUM SERUM 4.4 MMOL/L (3.5-5.1); SODIUM LEVEL 138 MMOL/L (136-145)
[2025-10-20] MEDS: HEPARIN 1,000 UNITS/ML 10 ML VIAL (FOR RADIOLOGY & DIALYSIS ONLY) XX SCH (10:24)
[2025-10-20] MEDS: PERCOCET 5MG/325MG TAB PO PRN (16:58)
[2025-10-20] MEDS: FAT EMULSION IV 250 ML IV ONE (18:07)
[2025-10-20 19:49] LABS: CALCIUM LEVEL 9.1 MG/DL (8.5-10.1); CARBON DIOXIDE LEVEL 26.0 MMOL/L (20-31); CHLORIDE LEVEL 100.0 MMOL/L (98-107); CREATININE FOR GFR 7.18 MG/DL (0.70-1.30); GLOMERULAR FILTRATION RATE 8.9 (>60); POTASSIUM SERUM 4.7 MMOL/L (3.5-5.1); SODIUM LEVEL 139.0 MMOL/L (136-145)
[2025-10-20 22:00] VITALS: BP 190/98; TEMP 98.8; O2SAT 96
[2025-10-20] MEDS: HYDROMORPHONE HCL 0.5 MG/0.5 ML SYRINGE IV ONE (22:13)
[2025-10-21] MEDS: PERCOCET 5MG/325MG TAB PO PRN (02:23)
[2025-10-21 05:55] VITALS: BP 136/63; TEMP 97.6; O2SAT 98
[2025-10-21 06:50] LABS: BASO # 0.1 10^3/uL (0.0-0.2); BASO % 0.8 % (0.0-1.0); EOS # 0.8 10^3/uL (0.0-0.5); EOS % 12.8 % (0.0-3.0); LYMPH # 1.5 10^3/uL (1.5-5.0); LYMPH % 24.5 % (24.0-44.0); MONO # 0.6 10^3/uL (0.0-0.8); MONO % 10.1 % (2.0-8.0); NEUTROPHILS # 3.1 10^3/uL (1.5-8.5); NEUTROPHILS % 51.6 % (36.0-66.0); PLATELET COUNT, AUTOMATED 225 10^3/uL (150-450)
[2025-10-21 07:24] LABS: ALT/SGPT < 9 U/L (7.0-40); AST/SGOT 15 U/L (<34); CALCIUM LEVEL 8.6 MG/DL (8.5-10.1); CARBON DIOXIDE LEVEL 25 MMOL/L (20-31); CHLORIDE LEVEL 98 MMOL/L (98-107); CREATININE FOR GFR 8.23 MG/DL (0.70-1.30); GLOMERULAR FILTRATION RATE 7.5 (>60); MAGNESIUM LEVEL 2.2 MG/DL (1.8-2.4); POTASSIUM SERUM 4.1 MMOL/L (3.5-5.1); SODIUM LEVEL 137 MMOL/L (136-145)
[2025-10-21] MEDS: HYDROMORPHONE HCL 0.5 MG/0.5 ML SYRINGE IV PRN (10:38)
[2025-10-21] MEDS: LIDOCAINE 5% PATCH TD SCH (10:43)
[2025-10-21] MEDS ORDERED: BISACODYL 10 MG SUPP PR PRN (14:05)
[2025-10-21] MEDS: INSULIN LISPRO (NovoLOG) PER UNIT SC SCH (18:00)
[2025-10-21] MEDS: FAT EMULSION IV 250 ML IV ONE (18:48)
[2025-10-21 20:20] VITALS: BP 147/74; TEMP 98.8; O2SAT 98
[2025-10-22] MEDS: HYDROMORPHONE HCL 0.5 MG/0.5 ML SYRINGE IV PRN (00:46)
[2025-10-22 03:43] VITALS: BP 135/71; TEMP 98.6; O2SAT 93
[2025-10-22] MEDS ORDERED: SODIUM CHLORIDE 0.9% 1000 ML IV PRN (06:00)
[2025-10-22] MEDS ORDERED: HEPARIN 1,000 UNITS/ML 10 ML VIAL (FOR RADIOLOGY & DIALYSIS ONLY) IV PRN (06:00)
[2025-10-22] MEDS ORDERED: LIDOCAINE 1% SDV 5 ML VIAL SC PRN (06:00)
[2025-10-22 06:25] LABS: BASO # 0.0 10^3/uL (0.0-0.2); BASO % 0.7 % (0.0-1.0); EOS # 0.9 10^3/uL (0.0-0.5); EOS % 15.3 % (0.0-3.0); LYMPH # 1.2 10^3/uL (1.5-5.0); LYMPH % 21.1 % (24.0-44.0); MONO # 0.5 10^3/uL (0.0-0.8); MONO % 8.7 % (2.0-8.0); NEUTROPHILS # 3.2 10^3/uL (1.5-8.5); NEUTROPHILS % 54.0 % (36.0-66.0); PLATELET COUNT, AUTOMATED 218 10^3/uL (150-450)
[2025-10-22 06:52] LABS: C REACTIVE PROTEIN QUANTITATIV 4.42 MG/DL (<1.0)
[2025-10-22 07:12] LABS: ALT/SGPT < 9 U/L (7.0-40); AST/SGOT 11 U/L (<34); CALCIUM LEVEL 8.4 MG/DL (8.5-10.1); CARBON DIOXIDE LEVEL 24 MMOL/L (20-31); CHLORIDE LEVEL 100 MMOL/L (98-107); CREATININE FOR GFR 10.27 MG/DL (0.70-1.30); GLOMERULAR FILTRATION RATE 5.8 (>60); MAGNESIUM LEVEL 2.2 MG/DL (1.8-2.4); POTASSIUM SERUM 4.4 MMOL/L (3.5-5.1); SODIUM LEVEL 139 MMOL/L (136-145)
[2025-10-22] MEDS: HEPARIN 1,000 UNITS/ML 10 ML VIAL (FOR RADIOLOGY & DIALYSIS ONLY) XX SCH (10:22)
[2025-10-22] MEDS ORDERED: ASPI81CH8 PO (11:24)
[2025-10-22] MEDS ORDERED: PERCOCET 5MG/325MG TAB PO PRN ×2 (15:50)
[2025-10-22] MEDS ORDERED: OXYC10TA12 PO (17:03)
[2025-10-22 20:45] VITALS: BP 177/77
[2025-10-22 20:46] VITALS: BP 177/77; TEMP 98.7; O2SAT 98
[2025-10-22 21:55] VITALS: BP 162/62
[2025-10-22 22:50] VITALS: BP 144/71
[2025-10-23] MEDS: DICYCLOMINE 10 MG CAP PO SCH (00:54)
[2025-10-23 03:43] VITALS: BP 138/67; TEMP 98.6; O2SAT 98
[2025-10-23] MEDS ORDERED: DICY1CAP8 PO (09:38)
== END 2025-10-23 10:27 | disposition home or self-care (01) | DRG 907 ==
LOC: M ED 19:27 → M ED INP 10-10 02:52 → M MSPAV 10-10 03:56
PROVIDERS: ADMIT Internal Medicine Nephrology; ATTEND Internal Medicine
PROC: 5A1D70Z Performance of Urinary Filtration, Intermittent, Less than 6 Hours Per Day (ICD-10-PCS; 2025-10-14)
PROC: 0DN80ZZ Release Small Intestine, Open Approach (ICD-10-PCS; principal; 2025-10-15 09:45)
DX: T85.71XA Infection and inflammatory reaction due to peritoneal dialysis catheter, initial encounter (principal); N18.6 End stage renal disease; I12.0 Hypertensive chronic kidney disease with stage 5 chronic kidney disease or end stage renal disease; D62 Acute posthemorrhagic anemia; K66.0 Peritoneal adhesions (postprocedural) (postinfection); E11.22 Type 2 diabetes mellitus with diabetic chronic kidney disease; E11.51 Type 2 diabetes mellitus with diabetic peripheral angiopathy without gangrene; I25.10 Atherosclerotic heart disease of native coronary artery without angina pectoris; E87.5 Hyperkalemia; D16.21 Benign neoplasm of long bones of right lower limb; G89.29 Other chronic pain; D63.1 Anemia in chronic kidney disease; Z79.4 Long term (current) use of insulin; Z79.02 Long term (current) use of antithrombotics/antiplatelets; Z79.899 Other long term (current) drug therapy; Z88.1 Allergy status to other antibiotic agents; Z95.5 Presence of coronary angioplasty implant and graft; K59.09 Other constipation; Z95.820 Peripheral vascular angioplasty status with implants and grafts; Z53.31 Laparoscopic surgical procedure converted to open procedure; Z99.2 Dependence on renal dialysis; Z88.5 Allergy status to narcotic agent; Y83.8 Other surgical procedures as the cause of abnormal reaction of the patient, or of later complication, without mention of misadventure at the time of the procedure; Y83.1 Surgical operation with implant of artificial internal device as the cause of abnormal reaction of the patient, or of later complication, without mention of misadventure at the time of the procedure

== ENCOUNTER 2025-10-28 10:43 | Emergency (ER) | payer MEDICARE ==
[~2025-10-28] VITALS: Ht 193 cm; Wt 102.0 kg
[~2025-10-28 10:43] MED LIST changes: +ASPI81CH8 PO; +DICY1CAP8 PO; +OXYC10TA12 PO
[2025-10-28] MEDS: PERCOCET 5MG/325MG TAB PO ONE (12:00)
[2025-10-28 13:06] VITALS: BP 138/67; TEMP 97.8; O2SAT 98
== END 2025-10-28 13:25 | disposition home or self-care (01) ==
LOC: M ED 10:43
DX: S40.012A Contusion of left shoulder, initial encounter (principal); S20.224A Contusion of middle back wall of thorax, initial encounter; S60.212A Contusion of left wrist, initial encounter; Y92.481 Parking lot as the place of occurrence of the external cause; Y93.9 Activity, unspecified; Y99.9 Unspecified external cause status; W01.0XXA Fall on same level from slipping, tripping and stumbling without subsequent striking against object, initial encounter; E11.9 Type 2 diabetes mellitus without complications; I12.0 Hypertensive chronic kidney disease with stage 5 chronic kidney disease or end stage renal disease; Z88.1 Allergy status to other antibiotic agents; Z88.5 Allergy status to narcotic agent; Z79.4 Long term (current) use of insulin; Z79.899 Other long term (current) drug therapy